=== PATIENT | male | born 1990 | race Hispanic/Latino ===

== ENCOUNTER 2019-09-08 03:15 | Emergency (ER) | payer BC ==
[2019-09-08] MEDS ORDERED: MORPHINE 4 MG/ML SYR ONE (03:53)
[2019-09-08] MEDS ORDERED: ONDANSETRON 4 MG/2 ML VIAL ONE (03:53)
[2019-09-08] MEDS ORDERED: CODEINE 30MG/APAP 300MG TAB ONE (05:48)
[2019-09-08 05:55] VITALS: BP 109/79; TEMP 99.1; O2SAT 97
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
== END 2019-09-08 05:48 | disposition home or self-care (01) ==
LOC: ER 03:15
DX: S22.32XA Fracture of one rib, left side, initial encounter for closed fracture (principal); V28.0XXA Motorcycle driver injured in noncollision transport accident in nontraffic accident, initial encounter; Z72.0 Tobacco use
CPT/HCPCS: 71046; 71100; 96375; 96374; 99284; J2405